=== PATIENT | male | born 1990 | race Hispanic/Latino ===

== ENCOUNTER 2019-04-07 02:09 | Emergency (ER) | payer SELFPAY ==
[2019-04-07 03:34] LABS: Absolute Lymphocytes (CBC) 1.9 K/uL (0.7-4.9); Basophils % 0.3 % (0-1.3); Hematocrit 43.4 % (39.6-49.0); Lymphocytes % 44.1 % (15.3-44.8); MPV 10.4 fL (7.6-11.3); RBC Red Blood Cell Count 4.93 M/uL (4.33-5.43)
[2019-04-07 03:41] LABS: BUN Blood Urea Nitrogen 11 mg/dL (7-18); Bicarbonate 29 mmol/L (21-32); Glucose Level 102 mg/dL (74-106); Potassium 3.8 mmol/L (3.5-5.1); Sodium Level 140 mmol/L (136-145)
--- NOTE | 2019-04-07 04:15 | ER ---
Nurse's Notes [facility] Name: Joshua Ortega Age: 28 yrs Sex: Male : 1990 Arrival Date: 04/07/2019 Time: 02:12 Bed 5 Private MD: Diagnosis: Upper respiratory infection Presentation: 04/07 02:23 Presenting complaint: Patient states: he has had a cold since the with fever, bb cough, he vomited a couple of times when it started but not lately he is having chest pain and back pain when coughing he has tried over the counter medications but they are not helping. Transition of care: patient was not received from another setting of care. Onset of symptoms was April 01, 2019. Risk Assessment: Do you want to hurt yourself or someone else?. Initial Sepsis Screen: Does the patient meet any 2 criteria? No. Patient's initial sepsis screen is negative. Does the patient have a suspected source of infection? No. Patient's initial sepsis screen is negative. Care prior to arrival: None. 02:23 Method Of Arrival: Ambulatory bb 02:23 Acuity: GAYE 3 bb Historical: - Allergies: 02:25 No Known Allergies; bb - Home Meds: 02:25 None [Active]; bb - PMHx: 02:25 None; bb - PSHx: 02:25 None; bb - Immunization history:: Adult Immunizations up to date, Flu vaccine is not up to date. - Social history:: Smoking status: Patient/guardian denies using tobacco. - Ebola Screening: : No symptoms or risks identified at this time. Screenin:40 Abuse screen: Denies threats or abuse. Nutritional screening: No deficits noted. jd3 Tuberculosis screening: No symptoms or risk factors identified. Fall Risk Ambulatory Aid- None/Bed Rest/Nurse Assist (0 pts). Gait- Normal/Bed Rest/Wheelchair (0 pts) Mental Status- Oriented to own ability (0 pts). Total Vasquez Fall Scale indicates No Risk (0-24 pts). Assessment: 02:38 General: Appears in no apparent distress. uncomfortable, Behavior is calm, cooperative, jd3 appropriate for age. Pain: Complains of pain in back Quality of pain is described as aching. Neuro: Level of Consciousness is awake, alert, obeys commands, Oriented to person, place, time, situation. Cardiovascular: Capillary refill < 3 seconds Patient's skin is warm and dry. Respiratory: Reports cough that is persistent pain with cough Airway is patent Respiratory effort is even, unlabored, Respiratory pattern is regular, symmetrical, Breath sounds are clear bilaterally. GI: Abdomen is round non-distended, Patient currently denies nausea, vomiting. : No signs and/or symptoms were reported regarding the genitourinary system. EENT: No signs and/or symptoms were reported regarding the EENT system. Derm: Skin is intact, Skin is dry, Skin is normal, Skin temperature is warm. Musculoskeletal: Circulation, motion, and sensation intact. Range of motion: intact in all extremities. 03:30 Reassessment: Patient appears in no apparent distress at this time. No changes from jd3 previously documented assessment. Patient and/or family updated on plan of care and expected duration. Pain level reassessed. Patient is alert, oriented x 3, equal unlabored respirations, skin warm/dry/pink. 04:20 Reassessment: Patient appears in no apparent distress at this time. Patient is alert, rr5 oriented x 3, equal unlabored respirations, skin warm/dry/pink. discharge instruction given and explained without complaints made. Vital Signs: 02:25 BP 135 / 87; Pulse 91; Resp 16 S; Temp 98.6(O); Pulse Ox 97% on R/A; Weight 63.5 kg bb (R); Height 5 ft. 6 in. (167.64 cm) (R); Pain 7/10; 03:31 BP 116 / 78; Pulse 89; Resp 17 S; Pulse Ox 96% on R/A; jd3 04:20 BP 117 / 77; Pulse 85; Resp 19; Temp 98.9; Pulse Ox 99% on R/A; rr5 02:25 Body Mass Index 22.60 (63.50 kg, 167.64 cm) ED Course: 02:12 Patient arrived in ED. es 02:18 Yvon Adler MD is Attending Physician. pkl 02:18 Meño León RN is Primary Nurse. jd3 02:25 Triage completed. bb 02:25 Arm band placed on Patient placed in an exam room, on a stretcher, on pulse oximetry. bb Family accompanied patient. 02:40 Patient has correct armband on for positive identification. Bed in low position. Call jd3 light in reach. Side rails up X 1. Adult w/ patient. 02:50 Inserted saline lock: 22 gauge in right antecubital area, using aseptic technique. rr5 Blood collected. 03:18 XRAY CXR (1 view) In Process Unspecified. EDMS 04:21 No provider procedures requiring assistance completed. IV discontinued, intact, rr5 bleeding controlled, No redness/swelling at site. Pressure dressing applied. Administered Medications: No medications were administered Outcome: 04:13 Discharge ordered by . caleb 04:21 Discharged to home ambulatory. rr5 04:21 Condition: stable 04:21 Discharge instructions given to patient, Instructed on discharge instructions, follow up and referral plans. medication usage, Demonstrated understanding of instructions, follow-up care, medications, Prescriptions given X 2. 04:21 Patient left the ED. rr5 Signatures: Dispatcher [employer] Yvon Lackey MD MD pkl Salyer, Edna es Ballard, Brenda RN RN Meño Lutz RN RN jd3 Roque, Raymond, RN RN rr5
--- NOTE | 2019-04-07 04:17 | EDPHYS ---
Physician Documentation [facility] Name: Joshua Ortega Age: 28 yrs Sex: Male : 1990 Arrival Date: 04/07/2019 Time: 02:12 Bed 5 Private MD: ED Physician Yvon Adler HPI: 04/07 02:42 This 28 yrs old Male presents to ER via Ambulatory with complaints of Flu pkl Symptoms, Vomiting, Fever, Chest Tightness. 02:42 The patient or guardian reports cough, described as moderate, with productive sputum, pkl that is green. Onset: The symptoms/episode began/occurred 4 day(s) ago. Associated signs and symptoms: Pertinent positives: fever, sore throat, vomiting. Historical: - Allergies: 02:25 No Known Allergies; bb - Home Meds: 02:25 None [Active]; bb - PMHx: 02:25 None; bb - PSHx: 02:25 None; bb - Immunization history:: Adult Immunizations up to date, Flu vaccine is not up to date. - Social history:: Smoking status: Patient/guardian denies using tobacco. - Ebola Screening: : No symptoms or risks identified at this time. ROS: 02:42 Eyes: Negative for injury, pain, redness, and discharge, ENT: Negative for injury, pkl pain, and discharge, Neck: Negative for injury, pain, and swelling, Cardiovascular: Negative for chest pain, palpitations, and edema, Respiratory: Negative for shortness of breath, cough, wheezing, and pleuritic chest pain, Abdomen/GI: Negative for abdominal pain, nausea, vomiting, diarrhea, and constipation, Back: Negative for injury and pain, : Negative for injury, bleeding, discharge, and swelling, MS/Extremity: Negative for injury and deformity, Skin: Negative for injury, rash, and discoloration, Neuro: Negative for headache, weakness, numbness, tingling, and seizure. Exam: 02:42 Head/Face: Normocephalic, atraumatic. Eyes: Pupils equal round and reactive to light, pkl extra-ocular motions intact. Lids and lashes normal. Conjunctiva and sclera are non-icteric and not injected. Cornea within normal limits. Periorbital areas with no swelling, redness, or edema. ENT: Nares patent. No nasal discharge, no septal abnormalities noted. Tympanic membranes are normal and external auditory canals are clear. Oropharynx with no redness, swelling, or masses, exudates, or evidence of obstruction, uvula midline. Mucous membranes moist. Neck: Trachea midline, no thyromegaly or masses palpated, and no cervical lymphadenopathy. Supple, full range of motion without nuchal rigidity, or vertebral point tenderness. No Meningismus. Chest/axilla: Normal chest wall appearance and motion. Nontender with no deformity. No lesions are appreciated. Cardiovascular: Regular rate and rhythm with a normal S1 and S2. No gallops, murmurs, or rubs. Normal PMI, no JVD. No pulse deficits. Respiratory: Lungs have equal breath sounds bilaterally, clear to auscultation and percussion. No rales, rhonchi or wheezes noted. No increased work of breathing, no retractions or nasal flaring. Abdomen/GI: Soft, non-tender, with normal bowel sounds. No distension or tympany. No guarding or rebound. No evidence of tenderness throughout. Back: No spinal tenderness. No costovertebral tenderness. Full range of motion. Skin: Warm, dry with normal turgor. Normal color with no rashes, no lesions, and no evidence of cellulitis. MS/ Extremity: Pulses equal, no cyanosis. Neurovascular intact. Full, normal range of motion. Neuro: Awake and alert, GCS 15, oriented to person, place, time, and situation. Cranial nerves II-XII grossly intact. Motor strength 5/5 in all extremities. Sensory grossly intact. Cerebellar exam normal. Normal gait. Vital Signs: 02:25 BP 135 / 87; Pulse 91; Resp 16 S; Temp 98.6(O); Pulse Ox 97% on R/A; Weight 63.5 kg bb (R); Height 5 ft. 6 in. (167.64 cm) (R); Pain 7/10; 03:31 BP 116 / 78; Pulse 89; Resp 17 S; Pulse Ox 96% on R/A; jd3 04:20 BP 117 / 77; Pulse 85; Resp 19; Temp 98.9; Pulse Ox 99% on R/A; rr5 02:25 Body Mass Index 22.60 (63.50 kg, 167.64 cm) dayana MDM: 02:18 Patient medically screened. pkl 04:11 Data reviewed: vital signs, nurses notes, lab test result(s), radiologic studies, plain pkl films. 04/07 02:18 Order name: Flu; Complete Time: 04:09 snw 04/07 02:18 Order name: Strep; Complete Time: 04:09 snw 04/07 02:41 Order name: CBC with Diff; Complete Time: 04:09 pkl 04/07 02:41 Order name: Chem 7; Complete Time: 04:09 pkl 04/07 02:41 Order name: XRAY CXR (1 view) pkl 04/07 03:08 Order name: Throat Culture EDMS Administered Medications: No medications were administered Disposition: 04/07/19 04:13 Discharged to Home. Impression: Upper respiratory infection. - Condition is Stable. - Prescriptions for Zithromax Z- Gurpreet 250 mg Oral Tablet - take 1 tablet by ORAL route as directed for 5 days Day 1 - take two (2) tablets one time. Day 2, 3, 4 , 5 take one (1) tablet once daily.; 6 tablet. Guaifenesin AC 10- 100 mg/5 mL Oral Liquid - take 10 milliliters by ORAL route every 8 hours As needed; 120 milliliter. - Medication Reconciliation Form, Thank You Letter, Antibiotic Education, Prescription Opioid Use form. - Follow up: Private Physician; When: 2 - 3 days; Reason: Re-evaluation by your physician. - Problem is new. - Symptoms have improved. Signatures: Dispatcher [employer] EDMS Yvon Adler MD MD pkl Ele Dixon RN RN Sánchez Campbell RN RN rr5 Corrections: (The following items were deleted from the chart) 04:21 04:13 04/07/2019 04:13 Discharged to Home. Impression: Upper respiratory infection. rr5 Condition is Stable. Forms are Medication Reconciliation Form, Thank You Letter, Antibiotic Education, Prescription Opioid Use. Follow up: Private Physician; When: 2 - 3 days; Reason: Re-evaluation by your physician. Problem is new. Symptoms have improved. pkl
[2019-04-07 04:31] VITALS: BP 117/77; TEMP 98.9; O2SAT 99
--- NOTE | 2019-04-07 09:32 | RAD REPORT ---
EXAM DESCRIPTION: RAD - Chest Single View - 04/07/2019 3:18 am CLINICAL HISTORY: Cough, fever COMPARISON: None. TECHNIQUE: AP portable chest image was obtained 0315 hours . FINDINGS: Lungs are clear. Heart and vasculature are normal. No measurable pleural effusion and no p neumothorax. No acute bony abnormality seen. No acute aortic findings suspected. IMPRESSION: No acute cardiopulmonary process.
== END 2019-04-07 04:21 | disposition home or self-care (01) ==
LOC: ER 02:09
DX: J06.9 Acute upper respiratory infection, unspecified (principal)
CPT/HCPCS: 36415; 71045; 80048; 85025; 87070; 87081; 87804; 99284